=== PATIENT | female | born 1970 | race American Indian/Alaskan Native ===

== ENCOUNTER 2021-03-15 08:34 | Outpatient (CLI) | payer MEDICAID ==
--- NOTE | 2021-03-15 11:19 | Ultrasound Report ---
ULTRASOUND PELVIS, COMPLETE INDICATION: Pelvic pain COMPARISON: No relevant prior imaging study available. TECHNIQUE: Transabdominal and transvaginal imaging was performed. FINDINGS: Uterus: No significant abnormality. Endometrial echo complex measures 11 mm on transvaginal imaging. Right ovary: There is a 1.5 cm simple cyst. Flow is seen to the right ovary. Left ovary: There is a 1.6 cm simple cyst. Flow is seen to the left ovary. Additional findings: There is a small amount of free fluid in the cul-de-sac IMPRESSION: 1. Small amount of free fluid in the cul-de-sac is nonspecific. 2. Simple cysts are noted in the ovaries bilaterally, as above. 3. Endometrial echo complex measures 11 mm. If this patient is premenopausal, this is within normal l imits.. Signer Name: Quintin Evans MD Signed: 03/15/2021 11:15 AM Workstation Name: [id number]
== END 2021-03-15 08:35 | disposition home or self-care (01) ==
LOC: US 08:34
PROVIDERS: ATTEND Urology
DX: N83.202 Unspecified ovarian cyst, left side (principal); N83.201 Unspecified ovarian cyst, right side; D25.9 Leiomyoma of uterus, unspecified
CPT/HCPCS: 76830; 76856